=== PATIENT | male | born 1940 | race Caucasian/White ===

== ENCOUNTER 2025-03-06 11:40 | Emergency (ER) | payer MEDICARE ==
[~2025-03-06] VITALS: Ht 175.3 cm; Wt 79.4 kg
[~2025-03-06 11:40] MED LIST: ASPIR 8181 MG PO; LEVOTHYROXINE100 MCG PO; LISINOPRIL10 MG PO; SIMVASTATIN40 MG PO
[2025-03-06 12:09] VITALS: TEMP 98.3
[2025-03-06] MEDS ORDERED: LISINOPRIL 2.5 MG TAB PO ONE (12:45)
[2025-03-06 12:58] LABS: BASOPHILS % 0.5 % (0.0-1.0); EOSINOPHILS # (AUTO) 0.1 (0.0-0.4); EOSINOPHILS % 1.4 % (0.0-6.0); HEMATOCRIT 43.6 % (38.2-49.6); HEMOGLOBIN 14.8 g/dL (14.0-18.0); LYMPHOCYTES # (AUTO) 1.6 (1.0-3.2); MEAN CORPUSCULAR HEMOGLOBIN 30.7 pg (28-32); MEAN CORPUSCULAR HGB CONC 33.9 g/dL (31-35); MEAN CORPUSCULAR VOLUME 90.5 fL (81-99); MONOCYTES # (AUTO) 0.7 (0.2-0.8); NEUTROPHILS # (AUTO) 4.1 (2.1-6.9); NEUTROPHILS % 62.9 % (38.7-80.0); PLATELET COUNT 274 x10e3/uL (140-360); RED BLOOD COUNT 4.82 x10e6/uL (4.3-5.7); WHITE BLOOD COUNT 6.47 x10e3/uL (4.8-10.8)
[2025-03-06 13:13] LABS: ALBUMIN 3.9 g/dL (3.5-5.0); ALBUMIN/GLOBULIN RATIO 1.2 (0.8-2.0); ANION GAP 16.6 mmol/L (8-16); BILIRUBIN,TOTAL 0.8 mg/dL (0.2-1.2); CREATININE, SERUM 1.25 mg/dL (0.72-1.25); MAGNESIUM 1.9 MG/DL (1.3-2.1); POTASSIUM 3.6 mmol/L (3.5-5.1); TOTAL PROTEIN 7.2 g/dL (6.5-8.1)
[2025-03-06 13:20] LABS: TROPONIN I 0.003 ng/mL (0-0.300)
[2025-03-06 13:30] VITALS: PULSE 58; RESP 14
[2025-03-06] MEDS ORDERED: ONDANSETRON ODT4 MG PO (13:48)
[2025-03-06] MEDS: ONDANSETRON HCL INJ 2MG/ML 2ML 2 MG/ML VIAL IV STA (13:50)
[2025-03-06] MEDS: SODIUM CHLORIDE 0.9% 500ML 500 ML IV ONE (14:00)
[2025-03-06 14:03] VITALS: BP 119/65; PULSE 98; RESP 16; TEMP 98; O2SAT 100
== END 2025-03-06 14:05 | disposition home or self-care (01) ==
LOC: ER 13:39
DX: I10 Essential (primary) hypertension (principal); R11.0 Nausea; R42 Dizziness and giddiness; M10.9 Gout, unspecified; E78.5 Hyperlipidemia, unspecified
CPT/HCPCS: 36415; 80053; 83735; 84484; 85025; 93005; 99284; J2405